=== PATIENT | male | born 1970 | race African-American/Black ===

== ENCOUNTER 2021-03-21 05:54 | Emergency (ER) | payer SELFPAY | END 2021-03-21 09:52 | disposition home or self-care (01) | LOC: ERS 05:54 | DX: B35.3 Tinea pedis (principal) | CPT/HCPCS: 99283 ==

== ENCOUNTER 2022-10-01 09:33 | Emergency (ER) | payer OTHER, SELFPAY ==
[2022-10-01] MEDS ORDERED: Orphenadrine Citrate 60 MG/2 ML VIAL ONE (11:05)
[2022-10-01 11:34] LABS: Bilirubin Negative (Negative); Blood, Urine 3+ (Negative); Clarity Clear (Clear); Glucose, Urine (Dipstick) Normal (Negative); Ketone, Urine 10 mg/dL (Negative); Leukocyte Negative Leu/uL (Negative); Nitrite Negative (Negative); Protein, Urine (Dipstick) 50 mg/dL (Neg-Trace); RBC/HPF Greater than 50 HPF (0-3); Specific Gravity, Urine 1.034 (1.002-1.036); Squamous Epithelial None Seen HPF (0-3); Urobilinogen 3 mg/dL (Less than 2)
[2022-10-01 11:39] LABS: Bacteria/HPF 1+ HPF (None Seen)
[2022-10-01 12:04] LABS: #Basophils 0.1 thou/uL (0.0-0.2); #Eosinphils 0.4 thou/uL (0.0-0.7); #Lymphocytes 2.2 thou/uL (1.20-3.40); #Monocytes 1.1 thou/uL (0.11-0.59); #Neutrophils 6.1 thou/uL (1.40-6.50); %Basophils 0.6 % (0.0-1.0); %Eosinophils 3.8 % (0.0-10.0); %Lymphocytes 22.6 % (21.0-51.0); %Monocytes 10.8 % (0.0-10.0); %Neutrophils 62.2 % (42.0-75.0); Hemoglobin 15.4 g/dL (14.0-18.0); Mean Corpuscular Hemoglobin 31.3 pg (27.0-31.0); Mean Corpuscular Volume 92.2 fl (78.0-98.0); Mean Platelet Volume 8.1 fL (7.4-10.4); Platelet Count 213 10x3/uL (130-400); RBC Distribution Width 13.2 % (11.5-14.5); Red Blood Cell (RBC) Count 4.93 mill/uL (4.70-6.10); White Blood Cell (WBC) Count 9.7 10x3/uL (4.8-10.8)
[2022-10-01 12:25] LABS: ALT (SGPT) 64 U/L (8-55); AST (SGOT) 84 U/L (5-34); Albumin 4.5 g/dL (3.5-5.0); Alkaline Phosphatase 110 U/L (40-110); Anion Gap 14 mmol/L (10-20); BUN (Urea Nitrogen) 13 mg/dL (8.9-20.6); Bilirubin, Total 1.4 mg/dL (0.2-1.2); Calc. Creatinine Clearance 0 mL/min (70-130); Calcium 9.4 mg/dL (7.8-10.44); Carbon Dioxide 24 mmol/L (22-29); Chloride 100 mmol/L (98-107); Estimated GFR 104; Globulin 3.1 g/dL (2.4-3.5); Glucose 132 mg/dL (70-105); Potassium 3.2 mmol/L (3.5-5.1); Protein, Total 7.6 g/dL (6.0-8.3); Sodium 135 mmol/L (136-145)
[2022-10-01] MEDS ORDERED: HYDROcodone/Acetaminophen 5/325 mg Tablet ONE (12:46)
[2022-10-01] MEDS ORDERED: Potassium Chloride 20 MEQ TAB ONE (13:12)
== END 2022-10-01 13:17 | disposition home or self-care (01) ==
LOC: ERS 09:33
DX: M54.50 Low back pain, unspecified (principal); I10 Essential (primary) hypertension; F17.210 Nicotine dependence, cigarettes, uncomplicated
CPT/HCPCS: 36415; 74176; 80053; 81003; 81015; 85025; 96372; J2360

== ENCOUNTER 2022-11-03 15:39 | Emergency (ER) | payer BC, OTHER, SELFPAY ==
[2022-11-03 17:24] LABS: #Basophils 0.1 thou/uL (0.0-0.2); #Eosinphils 0.3 thou/uL (0.0-0.7); #Monocytes 0.9 thou/uL (0.11-0.59); #Neutrophils 4.2 thou/uL (1.40-6.50); %Basophils 0.7 % (0.0-1.0); %Eosinophils 3.9 % (0.0-10.0); %Lymphocytes 26.1 % (21.0-51.0); %Monocytes 11.8 % (0.0-10.0); %Neutrophils 57.1 % (42.0-75.0); Mean Corpuscular HGB CONC 32.8 g/dL (32.0-36.0); Mean Corpuscular Hemoglobin 30.1 pg (27.0-31.0); Mean Corpuscular Volume 91.6 fl (78.0-98.0); Platelet Count 247 10x3/uL (130-400); RBC Distribution Width 14.3 % (11.5-14.5); Red Blood Cell (RBC) Count 4.99 mill/uL (4.70-6.10); White Blood Cell (WBC) Count 7.4 10x3/uL (4.8-10.8)
[2022-11-03 17:32] LABS: Bacteria/HPF None Seen HPF (None Seen); Bilirubin Negative (Negative); Blood, Urine 1+ (Negative); Clarity Clear (Clear); Glucose, Urine (Dipstick) Normal (Negative); Ketone, Urine Negative (Negative); Leukocyte Negative Leu/uL (Negative); Nitrite Negative (Negative); Protein, Urine (Dipstick) Negative (Neg-Trace); Specific Gravity, Urine 1.008 (1.002-1.036); Squamous Epithelial 0-3 HPF (0-3); Urobilinogen Normal mg/dL (Less than 2); WBC/HPF 0-3 HPF (0-3)
[2022-11-03 17:48] LABS: ALT (SGPT) 27 U/L (8-55); AST (SGOT) 17 U/L (5-34); Albumin 4.2 g/dL (3.5-5.0); Alkaline Phosphatase 122 U/L (40-110); Anion Gap 11 mmol/L (10-20); BUN (Urea Nitrogen) 9 mg/dL (8.9-20.6); Bilirubin, Total 0.3 mg/dL (0.2-1.2); Calc. Creatinine Clearance 0 mL/min (70-130); Calcium 9.5 mg/dL (7.8-10.44); Carbon Dioxide 23 mmol/L (22-29); Chloride 108 mmol/L (98-107); Estimated GFR 89; Globulin 3.1 g/dL (2.4-3.5); Glucose 99 mg/dL (70-105); Lipase 159 U/L (8-78); Potassium 4.4 mmol/L (3.5-5.1); Protein, Total 7.3 g/dL (6.0-8.3); Sodium 138 mmol/L (136-145)
== END 2022-11-03 18:56 | disposition home or self-care (01) ==
LOC: ERS 15:39
DX: K85.90 Acute pancreatitis without necrosis or infection, unspecified (principal); I10 Essential (primary) hypertension; F17.210 Nicotine dependence, cigarettes, uncomplicated
CPT/HCPCS: 36415; 74176; 80053; 81003; 81015; 83690; 85025

== ENCOUNTER 2022-11-04 01:50 | Inpatient (IN) | payer BC, OTHER, SELFPAY ==
[2022-11-04] MEDS ORDERED: Morphine 4 MG/ML VIAL ONE (02:28)
[2022-11-04] MEDS ORDERED: Ondansetron PF 4 MG/2 ML Vial ONE (02:28)
[2022-11-04 02:59] LABS: ALT (SGPT) 27 U/L (8-55); AST (SGOT) 15 U/L (5-34); Albumin 4.1 g/dL (3.5-5.0); Alkaline Phosphatase 124 U/L (40-110); Anion Gap 12 mmol/L (10-20); BUN (Urea Nitrogen) 11 mg/dL (8.9-20.6); Bilirubin, Total 0.3 mg/dL (0.2-1.2); Calc. Creatinine Clearance 0 mL/min (70-130); Calcium 9.4 mg/dL (7.8-10.44); Carbon Dioxide 23 mmol/L (22-29); Chloride 108 mmol/L (98-107); Estimated GFR 90; Globulin 2.6 g/dL (2.4-3.5); Glucose 141 mg/dL (70-105); Lipase 184 U/L (8-78); Protein, Total 6.7 g/dL (6.0-8.3); Sodium 139 mmol/L (136-145)
[2022-11-04] MEDS ORDERED: Ondansetron PF 4 MG/2 ML Vial IVP PRN (03:52)
[2022-11-04] MEDS ORDERED: Acetaminophen 650 MG Suppository PR PRN (03:52)
[2022-11-04] MEDS ORDERED: Ondansetron ODT 4 MG TAB PO PRN (03:52)
[2022-11-04 03:54] LABS: #Eosinphils 0.3 thou/uL (0.0-0.7); #Monocytes 0.8 thou/uL (0.11-0.59); #Neutrophils 4.3 thou/uL (1.40-6.50); %Basophils 0.5 % (0.0-1.0); %Eosinophils 4.3 % (0.0-10.0); %Monocytes 10.3 % (0.0-10.0); %Neutrophils 56.6 % (42.0-75.0); Hemoglobin 14.8 g/dL (14.0-18.0); Mean Corpuscular HGB CONC 33.3 g/dL (32.0-36.0); Mean Corpuscular Volume 90.1 fl (78.0-98.0); Mean Platelet Volume 10.8 fL (7.4-10.4); Platelet Count 246 10x3/uL (130-400); RBC Distribution Width 14.3 % (11.5-14.5); Red Blood Cell (RBC) Count 4.93 mill/uL (4.70-6.10); White Blood Cell (WBC) Count 7.6 10x3/uL (4.8-10.8)
[2022-11-04 04:08] LABS: Acetaminophen Less than 10.0 mcg/mL (10.0-30.0); Alcohol Less than 10 mg/dL (Less than 10); Salicylate Less than 8.0 mg/dL (15.0-30.0)
[2022-11-04 04:41] LABS: Bilirubin Negative (Negative); Blood, Urine Negative (Negative); Clarity Clear (Clear); Glucose, Urine (Dipstick) Normal (Negative); Ketone, Urine Negative (Negative); Leukocyte Negative Leu/uL (Negative); Nitrite Negative (Negative); Protein, Urine (Dipstick) Negative (Neg-Trace); Specific Gravity, Urine 1.017 (1.002-1.036); pH, Urine 6.5 (5.0-9.0)
[2022-11-04 04:54] VITALS: BMI 40.3
[2022-11-04] MEDS: Morphine 4 MG/ML VIAL SLOW IVP PRN ×5 (05:10→21:12)
[2022-11-04] MEDS: Sodium Chloride 0.9% 1,000 ML IV SCH ×5 (05:11→23:55)
[2022-11-04] MEDS: Acetaminophen 325 MG TAB PO PRN ×2 (15:54→21:12)
[2022-11-04] MEDS ORDERED: Morphine 4 MG/ML VIAL SLOW IVP PRN (17:54)
[2022-11-05] MEDS: Sodium Chloride 0.9% 1,000 ML IV SCH ×5 (04:33→20:34)
[2022-11-05] MEDS: Morphine 4 MG/ML VIAL SLOW IVP PRN ×3 (04:34→16:02)
[2022-11-05 06:55] LABS: #Eosinphils 0.2 thou/uL (0.0-0.7); #Monocytes 0.4 thou/uL (0.11-0.59); #Neutrophils 3.5 thou/uL (1.40-6.50); %Basophils 0.5 % (0.0-1.0); %Eosinophils 3.4 % (0.0-10.0); %Lymphocytes 24.8 % (21.0-51.0); %Monocytes 7.6 % (0.0-10.0); %Neutrophils 63.3 % (42.0-75.0); Hemoglobin 13.4 g/dL (14.0-18.0); Mean Corpuscular HGB CONC 31.8 g/dL (32.0-36.0); Mean Corpuscular Hemoglobin 29.1 pg (27.0-31.0); Mean Corpuscular Volume 91.5 fl (78.0-98.0); Platelet Count 222 10x3/uL (130-400); RBC Distribution Width 14.1 % (11.5-14.5); Red Blood Cell (RBC) Count 4.61 mill/uL (4.70-6.10); White Blood Cell (WBC) Count 5.5 10x3/uL (4.8-10.8)
[2022-11-05 07:21] LABS: Anion Gap 11 mmol/L (10-20); BUN (Urea Nitrogen) 6 mg/dL (8.9-20.6); Calc. Creatinine Clearance 195 mL/min (70-130); Calcium 8.8 mg/dL (7.8-10.44); Carbon Dioxide 21 mmol/L (22-29); Chloride 108 mmol/L (98-107); Estimated GFR 106; Glucose 170 mg/dL (70-105); Potassium 3.9 mmol/L (3.5-5.1); Sodium 136 mmol/L (136-145)
[2022-11-05] MEDS: Acetaminophen 325 MG TAB PO PRN ×3 (10:18→20:33)
[2022-11-05] MEDS ORDERED: Dextrose 5% in Water 1,000 ML IV PRN (11:33)
[2022-11-05] MEDS ORDERED: HumaLOG 300 UNITS/3 ML VIAL SC PRN (11:33)
[2022-11-05] MEDS ORDERED: Dextrose 50% Abboject 50 ML SYRINGE SLOW IVP PRN (11:33)
[2022-11-05] MEDS: Senokot S 8.6-50 MG TAB PO SCH (20:33)
[2022-11-06] MEDS: Morphine 4 MG/ML VIAL SLOW IVP PRN ×2 (00:15→16:24)
[2022-11-06] MEDS: Sodium Chloride 0.9% 1,000 ML IV SCH ×4 (06:30→21:10)
[2022-11-06 06:55] LABS: #Eosinphils 0.3 thou/uL (0.0-0.7); #Monocytes 0.6 thou/uL (0.11-0.59); #Neutrophils 3.4 thou/uL (1.40-6.50); %Basophils 0.5 % (0.0-1.0); %Eosinophils 5.3 % (0.0-10.0); %Lymphocytes 23.6 % (21.0-51.0); %Monocytes 10.5 % (0.0-10.0); %Neutrophils 59.9 % (42.0-75.0); Mean Corpuscular HGB CONC 33.1 g/dL (32.0-36.0); Mean Corpuscular Hemoglobin 29.7 pg (27.0-31.0); Mean Corpuscular Volume 89.8 fl (78.0-98.0); Platelet Count 240 10x3/uL (130-400); RBC Distribution Width 13.6 % (11.5-14.5); Red Blood Cell (RBC) Count 4.71 mill/uL (4.70-6.10); White Blood Cell (WBC) Count 5.7 10x3/uL (4.8-10.8)
[2022-11-06 06:58] LABS: Hemoglobin A1c 6.2 % (4.0-6.0)
[2022-11-06 07:10] LABS: ALT (SGPT) 20 U/L (8-55); AST (SGOT) 16 U/L (5-34); Albumin 3.9 g/dL (3.5-5.0); Alkaline Phosphatase 111 U/L (40-110); Anion Gap 10 mmol/L (10-20); BUN (Urea Nitrogen) 5 mg/dL (8.9-20.6); Bilirubin, Total 0.6 mg/dL (0.2-1.2); Calc. Creatinine Clearance 195 mL/min (70-130); Carbon Dioxide 24 mmol/L (22-29); Chloride 108 mmol/L (98-107); Estimated GFR 106; Globulin 2.7 g/dL (2.4-3.5); Glucose 116 mg/dL (70-105); Potassium 3.8 mmol/L (3.5-5.1); Protein, Total 6.6 g/dL (6.0-8.3); Sodium 138 mmol/L (136-145)
[2022-11-06] MEDS: Polyethylene Glycol 3350 17 GM Packet PO SCH (08:28)
[2022-11-06] MEDS: Senokot S 8.6-50 MG TAB PO SCH ×2 (08:28→21:10)
[2022-11-06] MEDS: Lisinopril 5 MG TAB PO SCH (08:28)
[2022-11-06] MEDS ORDERED: Bisacodyl 10 MG SUPP PR PRN (09:53)
[2022-11-06] MEDS: Acetaminophen 325 MG TAB PO PRN (16:24)
[2022-11-06] MEDS ORDERED: Fleet Saline Enema 133 ML BOT FS SCH (19:00)
[2022-11-07] MEDS: Sodium Chloride 0.9% 1,000 ML IV SCH (01:02)
[2022-11-07] MEDS: Polyethylene Glycol 3350 17 GM Packet PO SCH (08:06)
[2022-11-07] MEDS: Lisinopril 5 MG TAB PO SCH (08:06)
[2022-11-07] MEDS: Senokot S 8.6-50 MG TAB PO SCH (08:06)
[2022-11-07 11:49] VITALS: BP 144/84; TEMP 99
== END 2022-11-07 12:50 | disposition home or self-care (01) | DRG 439 ==
LOC: ERS 01:50 → T4-B 03:41
PROVIDERS: ADMIT Internal Medicine; ATTEND Internal Medicine
DX: K85.20 Alcohol induced acute pancreatitis without necrosis or infection (principal); Z68.41 Body mass index [BMI] 40.0-44.9, adult; I10 Essential (primary) hypertension; E66.01 Morbid (severe) obesity due to excess calories; F17.290 Nicotine dependence, other tobacco product, uncomplicated; K59.00 Constipation, unspecified; Z79.899 Other long term (current) drug therapy; Z71.6 Tobacco abuse counseling
CPT/HCPCS: 36415; 36416; 76705; 80048; 80053; 80307; 81003; 83036; 83690; 84478; 84484; 85025; 93005; 96365; 96375; J2270; J2405; J3411; J7050

== ENCOUNTER 2023-05-26 08:45 | Emergency (ER) | payer BC, SELFPAY ==
[2023-05-26 09:29] LABS: #Basophils 0.1 thou/uL (0.0-0.2); #Eosinphils 0.2 thou/uL (0.0-0.7); #Monocytes 0.7 thou/uL (0.11-0.59); #Neutrophils 4.5 thou/uL (1.40-6.50); %Basophils 0.7 % (0.0-1.0); %Eosinophils 2.6 % (0.0-10.0); %Lymphocytes 20.5 % (21.0-51.0); %Monocytes 10.4 % (0.0-10.0); %Neutrophils 65.2 % (42.0-75.0); Hematocrit 44.3 % (42.0-52.0); Hemoglobin 15.1 g/dL (14.0-18.0); Mean Corpuscular HGB CONC 34.1 g/dL (32.0-36.0); Mean Corpuscular Hemoglobin 31.2 pg (27.0-31.0); Mean Corpuscular Volume 91.5 fl (78.0-98.0); Mean Platelet Volume 9.4 fL (7.4-10.4); Platelet Count 264 10x3/uL (130-400); RBC Distribution Width 14.4 % (11.5-14.5); Red Blood Cell (RBC) Count 4.84 mill/uL (4.70-6.10); White Blood Cell (WBC) Count 6.9 10x3/uL (4.8-10.8)
[2023-05-26] MEDS ORDERED: Dexamethasone 10 MG/ML VIAL ONE (09:39)
[2023-05-26] MEDS ORDERED: Ketorolac Tromethamine 30 MG/ML VIAL ONE (09:39)
[2023-05-26 09:54] LABS: ALT (SGPT) 22 U/L (8-55); AST (SGOT) 17 U/L (5-34); Albumin 4.4 g/dL (3.5-5.0); Alkaline Phosphatase 116 U/L (40-110); Anion Gap 14 mmol/L (10-20); BUN (Urea Nitrogen) 9 mg/dL (8.4-25.7); Bilirubin, Total 0.4 mg/dL (0.2-1.2); Calc. Creatinine Clearance 0 mL/min (70-130); Calcium 9.3 mg/dL (7.8-10.44); Carbon Dioxide 25 mmol/L (22-29); Chloride 103 mmol/L (98-107); Estimated GFR 101; Globulin 2.9 g/dL (2.4-3.5); Glucose 134 mg/dL (70-105); Potassium 3.7 mmol/L (3.5-5.1); Protein, Total 7.3 g/dL (6.0-8.3); Sodium 138 mmol/L (136-145); Uric Acid 3.6 mg/dL (3.5-7.2)
== END 2023-05-26 10:24 | disposition home or self-care (01) ==
LOC: ERS 08:45
DX: M79.89 Other specified soft tissue disorders (principal); I10 Essential (primary) hypertension; F17.210 Nicotine dependence, cigarettes, uncomplicated; Z79.899 Other long term (current) drug therapy
CPT/HCPCS: 36415; 80053; 84550; 85025; 96372; J1100; J1885

== ENCOUNTER 2023-08-04 14:28 | Emergency (ER) | payer OTHER, SELFPAY | END 2023-08-04 15:05 | disposition home or self-care (01) | LOC: ERS 14:28 | DX: S80.861A Insect bite (nonvenomous), right lower leg, initial encounter (principal); S80.862A Insect bite (nonvenomous), left lower leg, initial encounter; I10 Essential (primary) hypertension; F17.210 Nicotine dependence, cigarettes, uncomplicated; W57.XXXA Bitten or stung by nonvenomous insect and other nonvenomous arthropods, initial encounter | CPT/HCPCS: 99282 ==

== ENCOUNTER 2023-08-23 13:39 | Emergency (ER) | payer OTHER, SELFPAY | END 2023-08-23 14:18 | disposition home or self-care (01) | LOC: ERS 13:39 | DX: B86 Scabies (principal); I10 Essential (primary) hypertension; F17.210 Nicotine dependence, cigarettes, uncomplicated | CPT/HCPCS: 99282 ==

== ENCOUNTER 2023-08-30 11:58 | Emergency (ER) | payer OTHER | END 2023-08-30 12:27 | disposition home or self-care (01) | LOC: ERS 11:58 | DX: B86 Scabies (principal) | CPT/HCPCS: 99282 ==

== ENCOUNTER 2024-05-12 12:54 | Emergency (ER) | payer OTHER ==
[2024-05-12] MEDS ORDERED: Lisinopril 10 MG TAB ONE (14:18)
[2024-05-12] MEDS ORDERED: Hydrochlorothiazide 25 MG TAB PO SCH (14:30)
[2024-05-12 14:43] LABS: #Basophils 0.05 10x3/uL (0.0-0.2); %Basophils 0.6 % (0.0-1.0); %Eosinophils 2.8 % (0.0-10.0); %Lymphocytes 18.7 % (21.0-51.0); %Neutrophils 68.6 % (42.0-75.0); Hematocrit 45.9 % (42.0-52.0); Hemoglobin 15.4 g/dL (14.0-18.0); Mean Corpuscular HGB CONC 33.6 g/dL (32.0-36.0); Mean Corpuscular Hemoglobin 30.1 pg (27.0-31.0); Mean Corpuscular Volume 89.8 fL (78.0-98.0); Mean Platelet Volume 10.1 fL (7.4-10.4); Platelet Count 279 10x3/uL (130-400); RBC Distribution Width 14.2 % (11.5-14.5); Red Blood Cell (RBC) Count 5.11 mill/uL (4.70-6.10)
[2024-05-12 14:50] LABS: Bacteria/HPF None Seen HPF (None Seen); Bilirubin Negative (Negative); Blood, Urine 2+ (Negative); CAUTI Indications for Culture < 2yrs of age; Clarity Clear (Clear); Glucose, Urine (Dipstick) Normal (Negative); Ketone, Urine Negative (Negative); Leukocyte Negative Leu/uL (Negative); Nitrite Negative (Negative); Protein, Urine (Dipstick) Negative (Neg-Trace); Specific Gravity, Urine 1.011 (1.002-1.036); Squamous Epithelial None Seen HPF (0-3); Urobilinogen Normal mg/dL (Less than 2); pH, Urine 6.5 (5.0-9.0)
[2024-05-12 14:54] LABS: Urine Culture Reflex No No; Urine Culture Reflex Yes Yes
[2024-05-12 15:08] LABS: ALT (SGPT) 26 U/L (8-55); AST (SGOT) 21 U/L (5-34); Albumin 3.9 g/dL (3.5-5.0); Alkaline Phosphatase 117 U/L (40-110); Anion Gap 14 mmol/L (10-20); BUN (Urea Nitrogen) 10 mg/dL (8.4-25.7); Bilirubin, Total 0.3 mg/dL (0.2-1.2); Calc. Creatinine Clearance 0 mL/min (70-130); Calcium 9.2 mg/dL (7.8-10.44); Carbon Dioxide 21 mmol/L (22-29); Chloride 106 mmol/L (98-107); Estimated GFR 92; Globulin 3.6 g/dL (2.4-3.5); Glucose 195 mg/dL (70-105); Potassium 4.1 mmol/L (3.5-5.1); Protein, Total 7.5 g/dL (6.0-8.3); Sodium 137 mmol/L (136-145)
[2024-05-12 15:12] LABS: Troponin I Less than 0.010 ng/mL (< 0.028)
== END 2024-05-12 17:10 | disposition home or self-care (01) ==
LOC: ERS 12:54
DX: I10 Essential (primary) hypertension (principal); R31.9 Hematuria, unspecified; R73.9 Hyperglycemia, unspecified; F17.210 Nicotine dependence, cigarettes, uncomplicated
CPT/HCPCS: 36415; 80053; 81001; 83880; 84484; 85025; 87086; 93005; 99283